=== PATIENT | female | born 1950 | race Caucasian/White ===

== ENCOUNTER 2017-12-07 15:14 | Emergency (ER) | payer OTHER ==
[~2017-12-07] VITALS: Ht 162.6 cm; Wt 69.4 kg
[2017-12-07 15:18] VITALS: Ht 162.6 cm; Wt 69.4 kg
[2017-12-07 17:25] VITALS: BP 170/79
== END 2017-12-07 17:25 | disposition home or self-care (01) ==
LOC: ED 15:14
DX: R60.0 Localized edema (principal); R51 Headache; E86.0 Dehydration; Z90.89 Acquired absence of other organs
CPT/HCPCS: J7030